=== PATIENT | male | born 1965 | race Caucasian/White ===

== ENCOUNTER 2017-08-08 10:01 | Emergency (ER) | payer MEDICAID ==
[2017-08-08 10:06] VITALS: BP 137/94
[2017-08-08] MEDS ORDERED: LIDOCAINE TOPICAL 4% 50 ML BOTTLE MM STA (10:51)
--- NOTE | 2017-08-08 10:55 | ED Physician Documentation ---
History of Present Illness - Stated complaint Stated Complaint: R EAR PX - Chief complaint Chief Complaint: Heent - Additonal information Additional information: hx from pt 51 male recent cough cold body aches ear was stuffy, cleaned qith q tip and got blood and now severe r ea and red swollen external ear and adjacent head and neck Review of Systems Constitutional: reports: Chills, Fatigue, Sweats. denies: Fever Ears: reports: Ear pain Nose: reports: Congestion Respiratory: reports: Cough Immunocompromised: denies: Immunocompromised PD PAST MEDICAL HISTORY - Past Medical History Past Medical History: Yes Cardiovascular: None Respiratory: None Neuro: Head injury Endocrine/Autoimmune: None GI: GERD, Ulcers : None HEENT: None Psych: Depression Musculoskeletal: Rheumatoid arthritis, Chronic back pain Derm: Other - Past Surgical History Past Surgical History: Yes Ortho: Spine surgery, Other - Present Medications Home Medications: Ambulatory Orders Medication Instructions Recorded Confirmed Albuterol Sulfate [Proair Hfa 2 puffs INH Q4H PRN #1 inhaler 08/08/17 Inhaler] Amox/Clav 875/125 [Augmentin] 1 each PO Q12H #20 tablet 08/08/17 Benzonatate [Tessalon] 100 mg PO TID PRN #20 capsule 08/08/17 Oxymetazoline HCl [Afrin] 2 spray NS BID PRN #1 bottle 08/08/17 - Allergies Allergies/Adverse Reactions: Allergies Allergy/AdvReac Type Severity Reaction Status Date / Time Sulfa (Sulfonamide Allergy Severe Rash Verified 08/08/17 10:05 Antibiotics) iodine Allergy "BLEEDING"-PER Verified 08/08/17 10:05 PATIENT - Social History Does the pt smoke?: Yes Smoking Status: Current every day smoker Does the pt drink ETOH?: No Does the pt have substance abuse?: No - Immunizations Immunizations are current?: Yes - POLST Patient has POLST: No PD ED PE NORMAL - Vitals Vital signs reviewed: Yes - HEENT HEENT: PERRL. No: Ears normal (R TM bulging with gree pus, partially obscured by swollen canal but no per or active bleeding seen, some old dried blood in canal, canal amd pinna and tragus and lobe or ear all red and swollen and tender , some TTP to mastoid as well but no erythema or boggy swelling there, and some mild edema and erythema to anterior right neck) - Neck Neck: Supple, no meningeal sign - Cardiac Cardiac: RRR - Respiratory Respiratory: Other (coarse kristy, exp wheezing) Results - Vitals Vitals: Vital Signs - 24 hr 08/08/17 10:03 Temperature 35.7 C L Heart Rate 66 Respiratory 16 Rate Blood Pressure 137/94 H O2 Saturation 100 Oxygen O2 Source Room air PD MEDICAL DECISION MAKING - ED course ED course: severe AOM with cellulitis of ear and even some TTP to mastoid region not diabetic will rx augmentin as well as symptomatic meds no local PMD advised pt he need to come back to ED for a 48 hr recheck unless completely better - may need imaging and IV antibiotics if not improving Departure - Departure Clinical Impression: Otitis media Qualifiers: Otitis media type: suppurative Chronicity: acute Laterality: right Recurrence: not specified as recurrent Spontaneous tympanic membrane rupture: without spontaneous rupture Qualified Code(s): H66.001 - Acute suppurative otitis media without spontaneous rupture of ear drum, right ear Cellulitis of ear Qualifiers: Laterality: right Qualified Code(s): H60.11 - Cellulitis of right external ear Condition: Good Instructions: ED Infec Skin Cellulitis, ED Otitis Media Acute Adult Prescriptions: Albuterol Sulfate [Proair Hfa Inhaler] 2 puffs INH Q4H PRN #1 inhaler PRN Reason: Shortness Of Air/Wheezing Amox/Clav 875/125 [Augmentin] 1 each PO Q12H #20 tablet Benzonatate [Tessalon] 100 mg PO TID PRN #20 capsule PRN Reason: to ease cough Oxymetazoline HCl [Afrin] 2 spray NS BID PRN #1 bottle PRN Reason: nasal sinus ear congestion Comments: You have a very severe ear infection that has spread to the external ear and the skin on the right side of your neck and perhaps even in the bone behind your ear called the mastoid You may also have pneumonia - as we discussed, I am already prescribing antibiotics for your ear so we agreed to pass on a chest xray for today I have prescribed a strong antibiotic And also medication to help ease the symptoms You can also take motrin and tylenol for the pain It is very very important that you come back to the ER for a recheck in 48 hr unless completely better - if you are not improving we may need to do a CT scan of your head and neck and give you IV antibiotics. Return to the ER at any time if you are getting worse - we are always open Forms: Activity restrictions
[2017-08-08] MEDS ORDERED: AMOX/CLAV 875 MG/125 MG TABLET PO STA (10:59)
== END 2017-08-08 11:17 | disposition home or self-care (01) ==
LOC: ED 10:01
DX: H66.001 Acute suppurative otitis media without spontaneous rupture of ear drum, right ear (principal); H60.11 Cellulitis of right external ear; K21.9 Gastro-esophageal reflux disease without esophagitis; M06.9 Rheumatoid arthritis, unspecified; Z87.11 Personal history of peptic ulcer disease; F17.200 Nicotine dependence, unspecified, uncomplicated
CPT/HCPCS: 99283; A9270

== ENCOUNTER 2019-05-20 10:47 | Emergency (ER) | payer MEDICAID ==
[2019-05-20 11:03] VITALS: BP 128/99
[2019-05-20] MEDS ORDERED: DEXAMETHASONE 10 MG/ML VIAL PO STA (12:28)
[2019-05-20] MEDS ORDERED: CHERRY SYRUP 10 ML UDC PO ONE (12:28)
[2019-05-20] MEDS ORDERED: KETOROLAC 60 MG/2 ML VIAL IM STA (12:28)
--- NOTE | 2019-05-20 12:33 | ED Physician Documentation ---
PD HPI HEENT - Stated complaint Stated Complaint: BACK PX,DENTAL PX - Chief complaint Chief Complaint: Heent - History obtained from History obtained from: Patient - History of Present Illness Timing - onset: How many days ago (5) Timing - duration: Days (5) Timing - details: Gradual onset, Still present Location: Tooth Improves: Medication Worsens: Swalllowing Associated symptoms: Congestion, Facial swelling, Other (back pain) Similar symptoms before: Diagnosis (dental abscess) Recently seen: Clinic - Additional information Additional information: 53-year-old male complains of a weeklong history of pain in his upper and lower molars and he is gone into see his dentist and was placed on some amoxicillin. He has had some swelling to the left upper eyelid and he picked that this and did not get much in the way of drainage from it. He has a sore up there now and has more swelling to his eye today than he did yesterday. He has been on the antibiotic for 2 days. He has not had improvement in his pain and has had worsening of the swelling in his eye. In addition the patient reports having a fall over [place] when he had his tool box in his arms he fell backwards and he strained his back. He is complaining of pain radiating down his right leg. He is not having any any issue with his bowel or bladder it does not have numbness in the perineum. Review of Systems Constitutional: denies: Fever, Chills Eyes: reports: Other (swelling to the L upper lid). denies: Decreased vision, Photophobia Ears: denies: Ear pain Nose: denies: Rhinorrhea / runny nose, Congestion Throat: reports: Dental pain / toothache. denies: Sore throat Cardiac: denies: Chest pain / pressure Respiratory: denies: Dyspnea, Cough GI: denies: Abdominal Pain, Nausea, Vomiting : denies: Dysuria, Frequency Musculoskeletal: reports: Back pain. denies: Neck pain Neurologic: denies: Generalized weakness, Focal weakness, Numbness PD PAST MEDICAL HISTORY - Past Medical History Cardiovascular: None Respiratory: None Endocrine/Autoimmune: None GI: GERD, Ulcers : None HEENT: None Psych: Depression Musculoskeletal: Rheumatoid arthritis, Chronic back pain Derm: Other - Past Surgical History Past Surgical History: Yes Ortho: Spine surgery, Other - Present Medications Home Medications: Ambulatory Orders Medication Instructions Recorded Confirmed Albuterol Sulfate [Proair Hfa 2 puffs INH Q4H PRN #1 inhaler 08/08/17 Inhaler] Amox/Clav 875/125 [Augmentin] 1 each PO Q12H #20 tablet 08/08/17 Benzonatate [Tessalon] 100 mg PO TID PRN #20 capsule 08/08/17 Oxymetazoline HCl [Afrin] 2 spray NS BID PRN #1 bottle 08/08/17 Amox/Clav 875/125 [Augmentin] 1 each PO Q12H #20 tablet 05/20/19 Cyclobenzaprine [Flexeril] 10 mg PO TID PRN #20 tablet 05/20/19 Hydrocodone/Acetaminophen 1 - 2 each PO Q6H PRN #14 tablet 05/20/19 [Hydrocodon-Acetaminophen 5-325] - Allergies Allergies/Adverse Reactions: Allergies Allergy/AdvReac Type Severity Reaction Status Date / Time Sulfa (Sulfonamide Allergy Severe Rash Verified 05/20/19 11:02 Antibiotics) iodine Allergy "BLEEDING"-PER Verified 05/20/19 11:02 PATIENT - Social History Does the pt smoke?: Yes Smoking Status: Current every day smoker Does the pt drink ETOH?: No Does the pt have substance abuse?: No - Immunizations Immunizations are current?: Yes - POLST Patient has POLST: No PD ED PE NORMAL - Vitals Vital signs reviewed: Yes - General General: Alert and oriented X 3, No acute distress, Well developed/nourished - HEENT HEENT: Atraumatic, PERRL, EOMI, Other (There is swelling to the left upper lid with mild erythema and an area that looks like a rug burn over the lateral aspect of the upper eyelid. Examination of the oropharynx reveals multiple carious teeth there are sensitive teeth to the posterior molars on the left side both upper and lower there is no fluctuance to the buccal fold.) - Neck Neck: Supple, no meningeal sign, No bony TTP - Respiratory Respiratory: No respiratory distress - Back Back: No CVA TTP, No spinal TTP, Other (There is tenderness to the paraspinous muscles of the lumbar spine on the right side extending from the medial aspect of the ribs to the iliac crest and radiating into the sciatic notch.) - Derm Derm: Normal color, Warm and dry, No rash - Extremities Extremities: Normal ROM s pain, No edema - Neuro Neuro: Alert and oriented X 3, reception agent 2-12 intact, No motor deficit, No sensory deficit, Normal speech Eye Opening: Spontaneous Motor: Obeys Commands Verbal: Oriented GCS Score: 15 - Psych Psych: Normal mood, Normal affect Results - Vitals Vitals: Vital Signs - 24 hr 05/20/19 10:56 Temperature 36.8 C Heart Rate 74 Respiratory 18 Rate Blood Pressure 128/99 H O2 Saturation 96 Oxygen O2 Source Room air PD MEDICAL DECISION MAKING - ED course Complexity details: reviewed old records, considered differential, d/w patient ED course: 53 y/o male with pain and swelling to the left eyelid, the left upper and lower molars and pain to the right back consistent with sciatica. We will change his antibiotic to augmentin and provide pain medication and muscle relaxant for sciatica as well as treatment in the ED consisting of decadron and toradal. Departure - Departure Disposition: 01 Home, Self Care Clinical Impression: Pain, dental, Periorbital cellulitis of left eye Sciatica Qualifiers: Laterality: right Qualified Code(s): M54.31 - Sciatica, right side Condition: Stable Instructions: ED Sciatica, ED Tooth Pain, ED Cellulitis Vanesa Orbital Follow-Up: Your, doctor [Other] Prescriptions: Amox/Clav 875/125 [Augmentin] 1 each PO Q12H #20 tablet Cyclobenzaprine [Flexeril] 10 mg PO TID PRN #20 tablet PRN Reason: Spasms Hydrocodone/Acetaminophen [Hydrocodon-Acetaminophen 5-325] 1 - 2 each PO Q6H PRN #14 tablet PRN Reason: pain
== END 2019-05-20 12:53 | disposition home or self-care (01) ==
LOC: ED 10:47
DX: K08.89 Other specified disorders of teeth and supporting structures (principal); L03.213 Periorbital cellulitis; M54.31 Sciatica, right side
CPT/HCPCS: 96372; 99283; 99284; A9270

== ENCOUNTER 2020-03-18 12:26 | Emergency (ER) | payer MEDICAID ==
[2020-03-18] MEDS ORDERED: CHERRY SYRUP 10 ML UDC PO ONE (13:19)
[2020-03-18] MEDS ORDERED: DEXAMETHASONE 10 MG/ML VIAL PO STA (13:19)
--- NOTE | 2020-03-18 13:22 | ED Physician Documentation ---
PD HPI SKIN - Stated complaint Stated Complaint: SWELLING IN HANDS, NECK PAIN - Chief complaint Chief Complaint: Wound - History obtained from History obtained from: Patient - History of Present Illness Timing - onset: How many weeks ago (1) Timing - duration: Weeks (1) Timing - details: Gradual onset, Still present Location: RUE, LUE Quality / character: Painful, Swelling Improved by: Antibiotics Associated symptoms: No: Fever, Myalgias, Joint pain, Headache, Facial swelling Contributing factors: Other (homeless) Similar symptoms before: Diagnosis (cellulitis) Recently seen: Emergency Dept - Additional information Additional information: 54-year-old homeless male with a prior history of MRSA infection has developed swelling and tenderness to his hands he is developed some erythema associated with this and he has gone to the hospital in [place] and he has been prescribed some clindamycin about 4 days ago. He states hand seem to get better and then overnight have worsened. He states that he feels the swelling is worse. It is better than it was when it started but worse than it was last night. He continues to be homeless he is working outside and rarely wearing gloves. He feels that he needs to have his antibiotic changed. Review of Systems Constitutional: denies: Fever Eyes: denies: Decreased vision Ears: denies: Ear pain Nose: denies: Congestion Throat: denies: Sore throat Cardiac: denies: Chest pain / pressure Respiratory: denies: Dyspnea, Cough GI: denies: Abdominal Pain, Nausea, Vomiting : denies: Dysuria, Frequency Skin: reports: Lesions, Abrasion (s). denies: Rash Musculoskeletal: reports: Extremity pain, Extremity swelling. denies: Neck pain, Back pain Neurologic: denies: Generalized weakness, Focal weakness, Numbness PD PAST MEDICAL HISTORY - Past Medical History Cardiovascular: None Respiratory: None Endocrine/Autoimmune: None GI: GERD, Ulcers : None HEENT: None Psych: Depression Musculoskeletal: Rheumatoid arthritis, Chronic back pain Derm: Other - Past Surgical History Past Surgical History: Yes Ortho: Spine surgery, Other - Present Medications Home Medications: Ambulatory Orders Medication Instructions Recorded Confirmed Albuterol Sulfate [Proair Hfa 2 puffs INH Q4H PRN #1 inhaler 08/08/17 Inhaler] Amox/Clav 875/125 [Augmentin] 1 each PO Q12H #20 tablet 08/08/17 Benzonatate [Tessalon] 100 mg PO TID PRN #20 capsule 08/08/17 Oxymetazoline HCl [Afrin] 2 spray NS BID PRN #1 bottle 08/08/17 Amox/Clav 875/125 [Augmentin] 1 each PO Q12H #20 tablet 05/20/19 Cyclobenzaprine [Flexeril] 10 mg PO TID PRN #20 tablet 05/20/19 Hydrocodone/Acetaminophen 1 - 2 each PO Q6H PRN #14 tablet 05/20/19 [Hydrocodon-Acetaminophen 5-325] Doxycycline Hyclate 100 mg PO BID #20 capsule 03/18/20 - Allergies Allergies/Adverse Reactions: Allergies Allergy/AdvReac Type Severity Reaction Status Date / Time Sulfa (Sulfonamide Allergy Severe Rash Verified 03/18/20 12:37 Antibiotics) iodine Allergy "BLEEDING"-PER Verified 03/18/20 12:37 PATIENT - Social History Does the pt smoke?: Yes Smoking Status: Current every day smoker Does the pt drink ETOH?: No Does the pt have substance abuse?: No - Immunizations Immunizations are current?: Yes - POLST Patient has POLST: No PD ED PE NORMAL - Vitals Vital signs reviewed: Yes (normal ) - General General: Alert and oriented X 3, No acute distress, Well developed/nourished - HEENT HEENT: Atraumatic, PERRL, EOMI - Respiratory Respiratory: No respiratory distress - Derm Derm: Normal color, Warm and dry, No rash - Extremities Extremities: No deformity, Other (Both hands are swollen callused and have cracked skin to the fingertips. There is some erythema to the dorsum of the hands there are several abrasions with superficial infection. There is no area that looks like uncontrolled infection. No areas of fluctuance. The hands appear homeless, exposed.) - Neuro Neuro: Alert and oriented X 3, video intern 2-12 intact, No motor deficit, No sensory deficit, Normal speech Eye Opening: Spontaneous Motor: Obeys Commands Verbal: Oriented GCS Score: 15 - Psych Psych: Normal mood, Normal affect Results - Vitals Vitals: Vital Signs - 24 hr 03/18/20 12:34 Temperature 36.1 C L Heart Rate 77 Respiratory 20 Rate Blood Pressure 118/78 O2 Saturation 100 Oxygen O2 Source Room air PD MEDICAL DECISION MAKING - ED course Complexity details: reviewed old records, considered differential, d/w patient ED course: 54-year-old homeless male with superficial infection to the dorsum of both hands worse on the right than the left without lymphangitic streaking there is no palpable lymph nodes in the right axilla. The patient is afebrile. I have discussed with the patient ways to combat this including wearing gloves all the time and working and avoiding exposure to cold avoiding exposure of wet hands to the drying air and to use lotion to the hands as well. He will attempt to take several days off from his usual pursuit of life. Departure - Departure Disposition: 01 Home, Self Care Clinical Impression: Superficial skin infection Exposure to environmental cold Qualifiers: Encounter type: initial encounter Qualified Code(s): T69.9XXA - Effect of reduced temperature, unspecified, initial encounter Condition: Stable Instructions: ED Staph Infec Abx Tx Only, ED Hypothermia Prevention, ED [facility] Follow-Up: [facility] [Provider Group] Prescriptions: Doxycycline Hyclate 100 mg PO BID #20 capsule
[2020-03-18 13:52] VITALS: BP 135/91
== END 2020-03-18 13:53 | disposition home or self-care (01) ==
LOC: ED 12:26
DX: L08.9 Local infection of the skin and subcutaneous tissue, unspecified (principal); S60.512A Abrasion of left hand, initial encounter; S60.511A Abrasion of right hand, initial encounter; X58.XXXA Exposure to other specified factors, initial encounter; T69.8XXA Other specified effects of reduced temperature, initial encounter; X31.XXXA Exposure to excessive natural cold, initial encounter; Z59.0 Homelessness; L84 Corns and callosities; Z86.14 Personal history of Methicillin resistant Staphylococcus aureus infection; F17.200 Nicotine dependence, unspecified, uncomplicated
CPT/HCPCS: 99282; 99284; A9270

== ENCOUNTER 2021-01-12 10:06 | Emergency (ER) | payer MEDICAID ==
[2021-01-12 10:20] VITALS: BP 125/85
--- NOTE | 2021-01-12 10:51 | ED Physician Documentation ---
PD HPI SKIN - Stated complaint Stated Complaint: RT EYE SORE - Chief complaint Chief Complaint: General - History obtained from History obtained from: Patient - History of Present Illness Timing - onset: How many days ago (4) Timing - duration: Days (4) Timing - details: Gradual onset, Still present, Waxing and waning Location: Face, RUE, LUE Quality / character: Itchy, Swelling Associated symptoms: No: Fever, Myalgias, Joint pain, Headache, Facial swelling, Dyspnea, Abd pain, N/V/D, Urinary sx Contributing factors: Other (has known MRSA) Similar symptoms before: Diagnosis (MRSA) Recently seen: Emergency Dept (at [facility]) - Additional information Additional information: 55-year-old male who [place] his [place] has had a problem with MRSA previously and he has developed some sores again and went out to [facility] and was placed under course of Augmentin which she states promptly fixed his symptoms and as soon as he stopped the antibiotic he was having issues with sores again he has a sore across his forehead which he has now ruptured and is healing he has sores to the dorsum of both of his hands. He also is having some problem with his right shoulder where he has pulled his shoulder rating his boat and he is having some difficulty sleeping at night because of this. Review of Systems Constitutional: denies: Fever Eyes: denies: Decreased vision Ears: denies: Ear pain Nose: denies: Congestion Throat: denies: Sore throat Cardiac: denies: Chest pain / pressure Respiratory: denies: Dyspnea, Cough GI: denies: Vomiting Skin: reports: Lesions Musculoskeletal: denies: Neck pain, Back pain, Extremity pain PD PAST MEDICAL HISTORY - Past Medical History Past Medical History: Yes Cardiovascular: None Respiratory: None Neuro: None Endocrine/Autoimmune: None GI: GERD, Ulcers : None HEENT: None Psych: Depression Musculoskeletal: Rheumatoid arthritis, Chronic back pain Derm: Other - Past Surgical History Past Surgical History: Yes Ortho: Spine surgery, Other - Present Medications Home Medications: Ambulatory Orders Medication Instructions Recorded Confirmed Albuterol Sulfate [Proair Hfa 2 puffs INH Q4H PRN #1 inhaler 08/08/17 Inhaler] Amox/Clav 875/125 [Augmentin] 1 each PO Q12H #20 tablet 08/08/17 Benzonatate [Tessalon] 100 mg PO TID PRN #20 capsule 08/08/17 Oxymetazoline HCl [Afrin] 2 spray NS BID PRN #1 bottle 08/08/17 Amox/Clav 875/125 [Augmentin] 1 each PO Q12H #20 tablet 05/20/19 Cyclobenzaprine [Flexeril] 10 mg PO TID PRN #20 tablet 05/20/19 Hydrocodone/Acetaminophen 1 - 2 each PO Q6H PRN #14 tablet 05/20/19 [Hydrocodon-Acetaminophen 5-325] Doxycycline Hyclate 100 mg PO BID #20 capsule 03/18/20 Cyclobenzaprine [Flexeril] 10 mg PO TID PRN #20 tablet 01/12/21 Doxycycline Hyclate 100 mg PO BID #14 tab 01/12/21 Mupirocin 1 gm TP BID #22 gm 01/12/21 - Allergies Allergies/Adverse Reactions: Allergies Allergy/AdvReac Type Severity Reaction Status Date / Time Sulfa (Sulfonamide Allergy Severe Rash Verified 01/12/21 10:21 Antibiotics) iodine Allergy "BLEEDING"-PER Verified 01/12/21 10:21 PATIENT - Social History Does the pt smoke?: Yes Smoking Status: Current every day smoker Does the pt drink ETOH?: No Does the pt have substance abuse?: No - Immunizations Immunizations are current?: Yes - POLST Patient has POLST: No PD ED PE NORMAL - Vitals Vital signs reviewed: Yes (hypertensive ) - General General: Alert and oriented X 3, No acute distress, Well developed/nourished - HEENT HEENT: PERRL, EOMI, Other (There is an area of swelling and redness above the right eyebrow without mass or drainage. ) - Neck Neck: Supple, no meningeal sign - Respiratory Respiratory: No respiratory distress - Derm Derm: Normal color, Warm and dry, Other (There are a few areas to the dorsum of both hands with small red macules without mass or drainage. ) - Extremities Extremities: No deformity, No edema, Other (There is minimal restriction to ROM of the right shoulder and mild anterior deltoid pain. ) - Neuro Neuro: Alert and oriented X 3, signal supervisor 2-12 intact, No motor deficit, No sensory deficit, Normal speech Eye Opening: Spontaneous Motor: Obeys Commands Verbal: Oriented GCS Score: 15 - Psych Psych: Normal mood, Normal affect Results - Vitals Vitals: Vital Signs - 24 hr 01/12/21 10:18 Temperature 36.5 C Heart Rate 76 Respiratory 15 Rate Blood Pressure 125/85 H O2 Saturation 99 Oxygen O2 Source Room air PD MEDICAL DECISION MAKING - ED course Complexity details: considered differential, d/w patient ED course: 55-year-old male who was on [place] has a problem with MRSA and he has had recurrence of his sores. He recalls last year he was given a prescription for doxycycline and this seemed to clear his skin up quite well. He is requesting we repeat this. This seems quite reasonable. He does appear to have a issue with carriage and I have indicated to the patient that use of mupirocin is appropriate in the setting to the nose twice per day. In addition he has some overuse of his right shoulder and is giving some difficulty in sleeping and I rowell ve offered to provide a sling and some Flexeril. Departure - Departure Disposition: 01 Home, Self Care Clinical Impression: MRSA infection Shoulder sprain Qualifiers: Encounter type: initial encounter Shoulder sprain type: unspecified sprain Laterality: right Qualified Code(s): S43.401A - Unspecified sprain of right shoulder joint, initial encounter Condition: Stable Instructions: MRSA Infec, ED Sprain Shoulder Follow-Up: [facility] [Provider Group] Prescriptions: Doxycycline Hyclate 100 mg PO BID #14 tab Cyclobenzaprine [Flexeril] 10 mg PO TID PRN #20 tablet PRN Reason: Spasms Mupirocin 1 gm TP BID #22 gm Comments: Today it looks that you have MRSA back in your skin again. Take the antibiotic as prescribed, clean your skin frequently and use the mupirocin to your nose twice daily to prevent colonization. For your shoulder; take it out of the shoulder sling several times per day to run it and range of motion and use the Flexeril as needed for sleep at night. Expect your shoulder pain to improve over the next week and if you do not have improvement or worsening with your shoulder follow-up with the primary care doctor.
== END 2021-01-12 11:13 | disposition home or self-care (01) ==
LOC: ED 10:06
DX: L08.9 Local infection of the skin and subcutaneous tissue, unspecified (principal); B95.62 Methicillin resistant Staphylococcus aureus infection as the cause of diseases classified elsewhere; S43.401A Unspecified sprain of right shoulder joint, initial encounter; X50.3XXA Overexertion from repetitive movements, initial encounter; Y92.814 Boat as the place of occurrence of the external cause; M06.9 Rheumatoid arthritis, unspecified; Z79.899 Other long term (current) drug therapy; F17.200 Nicotine dependence, unspecified, uncomplicated
CPT/HCPCS: 99283; 99284

== ENCOUNTER 2021-10-02 15:54 | Emergency (ER) | payer MEDICAID ==
--- NOTE | 2021-10-02 16:15 | ED Physician Documentation ---
PD HPI HEENT - Stated complaint Stated Complaint: FACIAL SWELL/TOOTH PX - Chief complaint Chief Complaint: Heent - History obtained from History obtained from: Patient - History of Present Illness Timing - onset: How many days ago (He has had 2 days of developing facial ulcerations and swelling. Noted left upper gum swelling and pain initially. Has several superficial skin sores with swelling on forehead and eyebrows and cheek) Timing - duration: Days (2-3) Timing - details: Gradual onset, Still present Location: Mouth (left upper gingiva, but also several on forehead/eyebrows.) Similar symptoms before: Diagnosis (Similar skin infections in the past related to staph.) Recently seen: Not recently seen Review of Systems Constitutional: denies: Fever, Chills Nose: denies: Rhinorrhea / runny nose, Congestion Throat: denies: Sore throat Respiratory: denies: Cough Musculoskeletal: denies: Neck pain Neurologic: denies: Altered mental status, Headache PD PAST MEDICAL HISTORY - Past Medical History Cardiovascular: None Respiratory: None Neuro: None Endocrine/Autoimmune: None GI: GERD, Ulcers : None HEENT: None Psych: Depression Musculoskeletal: Rheumatoid arthritis, Chronic back pain Derm: Other - Past Surgical History Past Surgical History: Yes Ortho: Spine surgery, Other - Present Medications Home Medications: Ambulatory Orders Medication Instructions Recorded Confirmed Albuterol Sulfate [Proair Hfa 2 puffs INH Q4H PRN #1 inhaler 08/08/17 Inhaler] Amox/Clav 875/125 [Augmentin] 1 each PO Q12H #20 tablet 08/08/17 Benzonatate [Tessalon] 100 mg PO TID PRN #20 capsule 08/08/17 Oxymetazoline HCl [Afrin] 2 spray NS BID PRN #1 bottle 08/08/17 Amox/Clav 875/125 [Augmentin] 1 each PO Q12H #20 tablet 05/20/19 Cyclobenzaprine [Flexeril] 10 mg PO TID PRN #20 tablet 05/20/19 Hydrocodone/Acetaminophen 1 - 2 each PO Q6H PRN #14 tablet 05/20/19 [Hydrocodon-Acetaminophen 5-325] Doxycycline Hyclate 100 mg PO BID #20 capsule 03/18/20 Cyclobenzaprine [Flexeril] 10 mg PO TID PRN #20 tablet 01/12/21 Doxycycline Hyclate 100 mg PO BID #14 tab 01/12/21 Mupirocin 1 gm TP BID #22 gm 01/12/21 Chlorhexidine Gluconate [Hibiclens] 15 ml TP DAILY #236 ml 10/02/21 Doxycycline Hyclate 100 mg PO BID 7 Days #14 cap 10/02/21 HYDROcod/ACETAM 5/325 [[place] 5/325] 1 ea PO Q6H PRN #18 tablet 10/02/21 Mupirocin 2% Oint [Bactroban 2% 1 applic TOP TID #15 gm 10/02/21 Oint] - Allergies Allergies/Adverse Reactions: Allergies Allergy/AdvReac Type Severity Reaction Status Date / Time Sulfa (Sulfonamide Allergy Severe Rash Verified 10/02/21 16:05 Antibiotics) iodine Allergy "BLEEDING"-PER Verified 10/02/21 16:05 PATIENT - Social History Does the pt smoke?: Yes Smoking Status: Current every day smoker Does the pt drink ETOH?: No Does the pt have substance abuse?: No - Immunizations Immunizations are current?: Yes - POLST Patient has POLST: No PD ED PE NORMAL - Vitals Vital signs reviewed: Yes - General General: Alert and oriented X 3, Well developed/nourished - HEENT HEENT: Ears normal, Moist mucous membranes, Pharynx benign, Other (forehead and eyebrow area with several local areas of swelling, red, tender, with superficial ulcerations. No fluctuance noted. No current drainage. ). No: Dentition benign (caries noted. There is swelling left upper gingiva without fluctuance. ) - Neck Neck: Supple, no meningeal sign, No adenopathy - Cardiac Cardiac: RRR, No murmur - Respiratory Respiratory: Clear bilaterally Results - Vitals Vitals: Oxygen O2 Source Room air PD MEDICAL DECISION MAKING - ED course Complexity details: considered differential (It does appear to be likely superficial staph infections with satellite lesions on the face. No fluctuant areas or obvious drainable abscesses at this point.), d/w patient Departure - Departure Disposition: 01 Home, Self Care Clinical Impression: Infection, face, Dental infection Condition: Stable Record reviewed to determine appropriate education?: Yes Instructions: ED Staph Infec Abx Tx Only Prescriptions: Mupirocin 2% Oint [Bactroban 2% Oint] 1 applic TOP TID #15 gm Doxycycline Hyclate 100 mg PO BID 7 Days #14 cap Chlorhexidine Gluconate [Hibiclens] 15 ml TP DAILY #236 ml HYDROcod/ACETAM 5/325 [[place] 5/325] 1 ea PO Q6H PRN #18 tablet PRN Reason: Pain Comments: Regular cleansing with soap and water or showers. You can use the chlorhexidine topical wash with showering or facecloth washing and use it on your whole body but particularly the head and neck and chest area. Mupirocin antibiotic ointment to the main sore ulcerations 2-3 times daily lately. Doxycycline oral antibiotic twice daily for a week as directed. Tylenol or ibuprofen if needed for mild pains or medium pains. Add hydrocodone if needed for worse pains. This would be intended short-term as I would anticipate improvement in the wounds and infections over the next 2 to 3 days. Recheck if not improving well over the next several days and return if worsening. I transmitted your prescriptions to [facility] pharmacy in [place]. I am prescribing a short course of narcotic pain medication for you. These are potentially dangerous and addictive medications that should be used carefully. These medications may constipate you. Take an avjd-sxg-pcnapod stool softener such as docusate twice daily with plenty of water while taking these medications. If you go 24 hours without a bowel movement, take wrse-wqy-rnngedn MiraLAX, per package instructions. Do not drink or drive while taking these medications. If you received narcotic or sedating medications while in the emergency department do not drive for 24 hours. Store this medication in a safe, secure place and out of reach of children. It is a violation of federal law to give or sell this medication to another person or to use in a manner other than prescribed. The ED will not refill narcotic prescriptions, including prescriptions lost or stolen. You can dispose of unwanted medications at the [facility]'s office or at several pharmacies such as [facility]. Discharge Date/Time: 10/02/21 16:47
[2021-10-02] MEDS ORDERED: IBUPROFEN 600 MG TABLET PO STA (16:27)
[2021-10-02] MEDS ORDERED: ACETAMINOPHEN 325 MG TABLET PO STA (16:27)
[2021-10-02] MEDS ORDERED: DOXYCYCLINE 100 MG TABLET PO STA (16:27)
== END 2021-10-02 16:47 | disposition home or self-care (01) ==
LOC: ED 15:54
DX: K04.7 Periapical abscess without sinus (principal)
CPT/HCPCS: 99283

== ENCOUNTER 2022-09-08 14:49 | Emergency (ER) | payer MEDICAID ==
[2022-09-08 14:56] VITALS: BP 160/88
--- NOTE | 2022-09-08 15:42 | XRAY Report ---
PROCEDURE: Wrist 4 View RT INDICATIONS: Trauma TECHNIQUE: 4 views of the wrist were acquired. COMPARISON: None. FINDINGS: Bones: No fractures or dislocations. No suspicious bony lesions. Scaphoid view: Intact scaphoid Soft tissues: No suspicious soft tissue calcifications or masses. IMPRESSION: Intact right wrist. Reviewed by: Sofía Lazaro MD on 09/08/2022 3:41 PM PDT Approved by: Sofía Lazaro MD on 09/08/2022 3:41 PM PDT Station ID: [id number]
[2022-09-08] MEDS ORDERED: IBUPROFEN 800 MG TABLET PO STA (15:49)
--- NOTE | 2022-09-08 15:52 | ED Physician Documentation ---
PD HPI UPPER EXT INJURY - Stated complaint Stated Complaint: RT WRIST PX - Chief complaint Chief Complaint: Trauma Ext - History obtained from History obtained from: Patient - History of Present Illness Location: Right, Wrist Where injury occurred: Home Timing - onset: Yesterday Pain level max: 6 Pain level now: 5 Improved by: Rest Worsened by: Moving, Palpating Associated symptoms: Tingling, Swelling. No: Weakness, Numbness, Discolored Contributing factors: No: Anticoagulated - Additonal information Additional information: Patient is a 56-year-old male who presents to the emergency department the right wrist injury. He states that he was starting a chainsaw when he felt a pop in his right wrist. This occurred yesterday. He states the pain is continued today. He noted swelling today as well. He states occasionally there is tingling as well. No discoloration. No numbness not anticoagulated. Patient is right-handed. Has not taken anything for pain. No fevers. No chills. Review of Systems Constitutional: denies: Fever, Chills GI: denies: Vomiting Skin: denies: Rash Musculoskeletal: denies: Neck pain, Back pain Neurologic: denies: Headache PD PAST MEDICAL HISTORY - Past Medical History Past Medical History: Yes Cardiovascular: None Respiratory: None Neuro: None Endocrine/Autoimmune: None GI: GERD, Ulcers : None HEENT: None Psych: Depression Musculoskeletal: Rheumatoid arthritis, Chronic back pain Derm: Other - Past Surgical History Past Surgical History: Yes Ortho: Spine surgery, Other - Present Medications Home Medications: Ambulatory Orders Medication Instructions Recorded Confirmed Albuterol Sulfate [Proair Hfa 2 puffs INH Q4H PRN #1 inhaler 08/08/17 Inhaler] Amox/Clav 875/125 [Augmentin] 1 each PO Q12H #20 tablet 08/08/17 Benzonatate [Tessalon] 100 mg PO TID PRN #20 capsule 08/08/17 Oxymetazoline HCl [Afrin] 2 spray NS BID PRN #1 bottle 08/08/17 Amox/Clav 875/125 [Augmentin] 1 each PO Q12H #20 tablet 05/20/19 Cyclobenzaprine [Flexeril] 10 mg PO TID PRN #20 tablet 05/20/19 Hydrocodone/Acetaminophen 1 - 2 each PO Q6H PRN #14 tablet 05/20/19 [Hydrocodon-Acetaminophen 5-325] Doxycycline Hyclate 100 mg PO BID #20 capsule 03/18/20 Cyclobenzaprine [Flexeril] 10 mg PO TID PRN #20 tablet 01/12/21 Doxycycline Hyclate 100 mg PO BID #14 tab 01/12/21 Mupirocin 1 gm TP BID #22 gm 01/12/21 Chlorhexidine Gluconate [Hibiclens] 15 ml TP DAILY #236 ml 10/02/21 Doxycycline Hyclate 100 mg PO BID 7 Days #14 cap 10/02/21 HYDROcod/ACETAM 5/325 [[place] 5/325] 1 ea PO Q6H PRN #18 tablet 10/02/21 Mupirocin 2% Oint [Bactroban 2% 1 applic TOP TID #15 gm 10/02/21 Oint] HYDROcod/ACETAM 5/325 [[place] 5/325] 1 - 2 ea PO Q6H PRN #14 tablet 09/08/22 Ibuprofen [Motrin] 800 mg PO Q8H PRN #30 tablet 09/08/22 - Allergies Allergies/Adverse Reactions: Allergies Allergy/AdvReac Type Severity Reaction Status Date / Time Sulfa (Sulfonamide Allergy Severe Rash Verified 09/08/22 14:53 Antibiotics) iodine Allergy "BLEEDING"-PER Verified 09/08/22 14:53 PATIENT - Social History Does the pt smoke?: Yes Smoking Status: Current every day smoker Does the pt drink ETOH?: No Does the pt have substance abuse?: No - Immunizations Immunizations are current?: Yes - POLST Patient has POLST: No PD ED PE NORMAL - Vitals Vital signs reviewed: Yes - General General: Alert and oriented X 3, No acute distress - HEENT HEENT: Moist mucous membranes - Derm Derm: Warm and dry - Extremities Extremities: Other (Right hand and wrist - Mild swelling and tenderness over the volar aspect of the right forearm. No bony tenderness over the wrist, anatomical snuffbox, hand or remainder of forearm. Neurovascular intact. He is able to range all fingers, there is pain with this however.) - Neuro Neuro: Alert and oriented X 3 Results - Vitals Vitals: Vital Signs - 24 hr 09/08/22 14:53 Temperature 36.5 C Heart Rate 90 Respiratory 18 Rate Blood Pressure 160/88 H O2 Saturation 98 Oxygen O2 Source Room air - Rads (name of study) R wrist xray Relevant Findings:: Final report received, See rad report (Intact right wrist. ) PD Medical Decision Making - ED course Complexity details: reviewed results, considered differential, d/w patient ED course: 56-year-old male with a right wrist strain/sprain. No acute findings on x-ray. Placed in a Velcro splint for comfort. Neurovascular intact. Will prescribe pain medication for home. Often follow-up with his doctor and orthopedics for further care. Patient will need to be more detailed examination of his wrist, forearm and tendons once the swelling and pain have decreased. Patient counseled regarding signs and symptoms for which I believe and urgent re- evaluation would be necessary. Patient with good understanding of and agreement to plan and is comfortable going home at this time This document was made in part using voice recognition software. While efforts are made to proofread this document, sound alike and grammatical errors may occur. Departure - Departure Disposition: 01 Home, Self Care Clinical Impression: Right wrist sprain Qualifiers: Encounter type: initial encounter Qualified Code(s): S63.501A - Unspecified sprain of right wrist, initial encounter Condition: Good Instructions: ED Splint Care Velcro, ED Sprain Wrist Follow-Up: [facility]opedic [facility] [Provider Group] - Within 1 week Prescriptions: Ibuprofen [Motrin] 800 mg PO Q8H PRN #30 tablet PRN Reason: PAIN &/OR FEVER HYDROcod/ACETAM 5/325 [[place] 5/325] 1 - 2 ea PO Q6H PRN #14 tablet PRN Reason: Pain Comments: Your xray does not show any acute abnormality. Wear the splint at all times. Please follow up with orthopedics for re-evaluation of your tendons and wrist when the swelling has decreased. Your prescriptions were sent to [facility] in [place]. I am prescribing a short course of narcotic pain medication for you. These are potentially dangerous and addictive medications that should be used carefully. These medications may constipate you. Take an mqxs-enr-ncjynbh stool softener (docusate) twice daily with plenty of water while taking these medications. If you go 24 hours without a bowel movement, take shjm-fdp-spsedyq miralax, per package instructions. Do not drink or drive while taking these medications. If you received narcotic or sedating medications while in the emergency department, do not drive for 24 hours. Store this medication in a safe, secure place and out of reach of children. It is a violation of federal law to give or sell this medication to another person or to use in a manner other than prescribed. The ED will not refill narcotic prescriptions, including prescriptions lost or stolen. To dispose of unwanted medications: 1. [facility] at [address] in [place] has a medication drop box. They accept prescription medications (in pill form) Wednesday through Wednesday 9:00 a.m. to 5:00 p.m. 2. The [facility] [employer] accepts prescription medications (in pill form only) for disposal year round. Call for more information. 3. Contact the [facility] for the next [facility] sponsored prescription drug collection event. , [phone], or [phone]; Discharge Date/Time: 09/08/22 16:01
== END 2022-09-08 16:01 | disposition home or self-care (01) ==
LOC: ED 14:49
DX: S63.501A Unspecified sprain of right wrist, initial encounter (principal); X58.XXXA Exposure to other specified factors, initial encounter; Y93.89 Activity, other specified; Z79.899 Other long term (current) drug therapy; F17.200 Nicotine dependence, unspecified, uncomplicated
CPT/HCPCS: 73110; 99283; A9270

== ENCOUNTER 2023-05-25 19:23 | Emergency (ER) | payer MEDICAID ==
[2023-05-25 19:35] VITALS: BP 140/108; O2SAT 98
[2023-05-25] MEDS ORDERED: HYDROcod/ACET 5/325 Prepack 4 PO STA (19:46)
--- NOTE | 2023-05-25 19:51 | ED Physician Documentation ---
PD HPI HEENT - Stated complaint Stated Complaint: TOOTH PX - Chief complaint Chief Complaint: Heent - History obtained from History obtained from: Patient - Additional information Additional information: 57-year-old male presents with Left upper molar pain. Has had dental decay in this area for many years and has been referred to a specialist in the [place] area but unfortunately has never been able to travel there due to issues with transportation and finances. HeAnd has been worse, rating up into his eye and causing his eye to twitch. This has happened before and he was told it may be related to his optic nerve given the proximity of the dental decay. He has not had any eye swelling, no eye redness or drainage. He has not had any facial swelling or erythema no fever or chills. He states he did recently get a vehicle and does plan to try to see a dentist now but is requesting pain control and possibly antibiotics until then. He has tried Tylenol and ibuprofen without relief.He also smokes marijuana for pain occasionally Review of Systems Constitutional: reports: Reviewed and negative Eyes: reports: Reviewed and negative, Other (Left eye twitching) Nose: reports: Reviewed and negative Throat: reports: Dental pain / toothache. denies: Oral lesions / sores, Sore throat, Swollen tonsils, Swallowed foreign body PD PAST MEDICAL HISTORY - Past Medical History Past Medical History: Yes Cardiovascular: None Respiratory: None Neuro: CVA Endocrine/Autoimmune: None GI: GERD, Ulcers : None HEENT: None Psych: Depression Musculoskeletal: Rheumatoid arthritis, Chronic back pain Derm: Other - Past Surgical History Past Surgical History: Yes Ortho: Spine surgery, Other - Present Medications Home Medications: Ambulatory Orders Medication Instructions Recorded Confirmed Amoxicillin 500 mg PO TID #21 cap 05/25/23 HYDROcod/ACETAM 5/325 [[place] 5/325] 1 - 2 tablet PO Q6H PRN #14 tablet 05/25/23 - Allergies Allergies/Adverse Reactions: Allergies Allergy/AdvReac Type Severity Reaction Status Date / Time Sulfa (Sulfonamide Allergy Severe Rash Verified 05/25/23 19:42 Antibiotics) iodine Allergy "BLEEDING"-PER Verified 05/25/23 19:42 PATIENT - Social History Does the pt smoke?: Yes Smoking Status: Current every day smoker Does the pt drink ETOH?: No Does the pt have substance abuse?: No - Immunizations Immunizations are current?: Yes - POLST Patient has POLST: No PD ED PE NORMAL - Vitals Vital signs reviewed: Yes - General General: Alert and oriented X 3, No acute distress, Well developed/nourished - HEENT HEENT: Atraumatic, PERRL, EOMI (Occasional left eye twitch), Moist mucous membranes, Other (Dental decay with eroding left upper molars and visible caries. There is no abscess along the gumline or no facial swelling or erythema.) - Cardiac Cardiac: RRR, No murmur, No gallop, No rub - Respiratory Respiratory: No respiratory distress, Clear bilaterally Results - Vitals Vitals: Vital Signs - 24 hr 05/25/23 19:27 Temperature 36 C L Heart Rate 97 Respiratory 16 Rate Blood Pressure 140/108 H O2 Saturation 98 Oxygen O2 Source Room air PD Medical Decision Making - ED course Complexity details: d/w patient ED course: 57-year-old male presented with left upper molar dental pain. He has had issues in this area for quite some time as he has in a broken eroding tooth decay and he has visible caries and decay on exam today, there is no abscess per se along the gumline or no drainable abscess but certainly he likely has some deep DKA in this area causing his symptoms. No evidence of facial cellulitis or erythema. I advised the patient that we can give a short-term prescription for pain control and antibiotics but this is a temporary measure and he absolutely needs to see a dentist for definitive treatment. The patient states understanding, states he now has a vehicle and is able to transport himself to the dentist thus plans to make an appointment as soon as he can. I prescribed the patient short- term [place], recommend take ibuprofen and will prescribe amoxicillin. Return precautions reviewed. Departure - Departure Disposition: 01 Home, Self Care Clinical Impression: Pain due to dental caries Condition: Good Instructions: ED Tooth Pain Prescriptions: Amoxicillin 500 mg PO TID #21 cap HYDROcod/ACETAM 5/325 [[place] 5/325] 1 - 2 tablet PO Q6H PRN #14 tablet PRN Reason: Pain Comments: You have severe dental decay causing your pain. It is extremely important that you see a dentist as soon as possible to definitively address this. We will give you antibiotics and pain medicine at this time but this is just a temporary measure until you can see the dentist. I am prescribing a short course of narcotic pain medication for you. These are potentially dangerous and addictive medications that should be used carefully. These medications may constipate you. Take an yvxd-oft-kswsxqn stool softener (docusate) twice daily with plenty of water while taking these medications. If you go 24 hours without a bowel movement, take uihi-bsm-utcnzki miralax, per package instructions. Do not drink or drive while taking these medications. If you received narcotic or sedating medications while in the emergency department, do not drive for 24 hours. Store this medication in a safe, secure place and out of reach of children. It is a violation of federal law to give or sell this medication to another person or to use in a manner other than prescribed. The ED will not refill narcotic prescriptions, including prescriptions lost or stolen. To dispose of unwanted medications: 1. [facility] provides a drop box for medication in pill form only (no liquids) 8:00 am to 4:30 p.m. Wednesday-Wednesday in the lobby of the [facility], [address] [place] [address]. Empty pills into ziplock bag before disposal. Call [phone] for information. 2.[employer] is a free service available to all [facility] residents. Go to [email or web address] Note that many narcotic pain relievers also contain Tylenol/acetaminophen. Please ensure that your total dose of acetaminophen from all sources does not exceed 3 g (3000 mg) per day. Forms: PCP List
== END 2023-05-25 19:59 | disposition home or self-care (01) ==
LOC: ED 19:23
DX: K02.9 Dental caries, unspecified (principal); F17.200 Nicotine dependence, unspecified, uncomplicated
CPT/HCPCS: 99282; 99283

== ENCOUNTER 2023-06-29 10:21 | Emergency (ER) | payer MEDICAID ==
[2023-06-29 10:42] VITALS: BP 146/92; O2SAT 98
--- NOTE | 2023-06-29 11:24 | XRAY Report ---
PROCEDURE: Chest 2V INDICATIONS: Productive cough with SOA TECHNIQUE: 2 views of the chest were acquired. COMPARISON: None. FINDINGS: Surgical changes and devices: None. Lungs and pleura: No dense consolidation or pleural effusion. Mediastinum: Normal heart size Bones and chest wall: Mild degenerative changes. IMPRESSION: No acute radiographic abnormality. Reviewed by: Damián Rivera MD on 06/29/2023 11:23 AM [facility] Approved by: Damián Rivera MD on 06/29/2023 11:23 AM [facility] Station ID: [id number]
[2023-06-29 11:41] LABS: CORONAVIRUS 229E-RESP PCR NOT DETECTED; CORONAVIRUS HKU1-RESP PCR NOT DETECTED; CORONAVIRUS NL63-RESP PCR NOT DETECTED; CORONAVIRUS OC43-RESP PCR NOT DETECTED; HUMAN METAPNEUMOVIRUS NOT DETECTED; RHINOVIRUS/ENTEROVIRUS DETECTED; SARS-CoV-2 -RESP PCR PANEL NOT DETECTED
[2023-06-29 11:42] LABS: B. PARAPERTUSSIS- RESP PCR PAN NOT DETECTED; B. PERTUSSIS- RESP PCR PANEL NOT DETECTED; C. PNEUMONIAE- RESP PCR PANEL NOT DETECTED; INFLUENZA A- RESP PCR PANEL NOT DETECTED; INFLUENZA B - RESP PCR PANEL NOT DETECTED; M. PNEUMONIAE- RESP PCR PANEL NOT DETECTED; PARAINFLUENZA VIRUS 1 NOT DETECTED; PARAINFLUENZA VIRUS 2 NOT DETECTED; PARAINFLUENZA VIRUS 3 NOT DETECTED; PARAINFLUENZA VIRUS 4 NOT DETECTED; RSV- RESP PCR PANEL NOT DETECTED
--- NOTE | 2023-06-29 11:48 | ED Physician Documentation ---
History of Present Illness - Stated complaint Stated Complaint: NECK PX,SOA,UNWELL - Chief complaint Chief Complaint: Resp - History obtained from History obtained from: Patient - History of Present Illness Timing: How many weeks ago (1) Pain level max: 5 Pain level now: 5 - Additonal information Additional information: 57 year old male states that he has had a cough for the past 1 week. He complains of bodyaches, cough and congestion. States he feels like he is having difficulty breathing. Denies any history of lung diagnoses. He does smoke. Complains of generalized body ache. No nausea, vomiting or diarrhea currently. No abdominal pain. No chest pain. No fevers but has felt chilled. Review of Systems Constitutional: reports: Chills. denies: Fever Nose: reports: Rhinorrhea / runny nose, Congestion, Sinus pressure / pain Throat: denies: Sore throat Cardiac: denies: Chest pain / pressure, Palpitations Respiratory: reports: Cough, Wheezing GI: denies: Abdominal Pain, Nausea, Vomiting, Diarrhea Skin: denies: Rash Musculoskeletal: denies: Neck pain, Back pain Neurologic: denies: Headache PD PAST MEDICAL HISTORY - Past Medical History Past Medical History: Yes Cardiovascular: None Respiratory: None Neuro: CVA Endocrine/Autoimmune: None GI: GERD, Ulcers : None HEENT: None Psych: Depression Musculoskeletal: Rheumatoid arthritis, Chronic back pain Derm: Other - Past Surgical History Past Surgical History: Yes Ortho: Spine surgery, Other - Present Medications Home Medications: Ambulatory Orders Medication Instructions Recorded Confirmed clindamycin HCL [Cleocin HCl] 300 mg PO Q6H #40 cap 06/29/23 - Allergies Allergies/Adverse Reactions: Allergies Allergy/AdvReac Type Severity Reaction Status Date / Time Sulfa (Sulfonamide Allergy Severe Rash Verified 06/29/23 10:34 Antibiotics) iodine Allergy "BLEEDING"-PER Verified 06/29/23 10:34 PATIENT - Social History Does the pt smoke?: Yes Smoking Status: Current every day smoker Does the pt drink ETOH?: No Does the pt have substance abuse?: Yes Substance Use and Type: Marijuana - Immunizations Immunizations are current?: Yes - POLST Patient has POLST: No PD ED PE NORMAL - Vitals Vital signs reviewed: Yes - General General: Alert and oriented X 3, No acute distress - HEENT HEENT: Atraumatic, PERRL, EOMI, Ears normal, Moist mucous membranes - Neck Neck: Supple, no meningeal sign - Cardiac Cardiac: RRR, Strong equal pulses - Respiratory Respiratory: No respiratory distress, Other (Diffuse wheezing bilaterally) - Abdomen Abdomen: Soft, Non tender, Non distended - Derm Derm: Warm and dry - Extremities Extremities: No edema, Other (Several scattered areas of excoriation and erythema to the back of the bilateral hands. No drainable abscesses.) - Neuro Neuro: Alert and oriented X 3 - Psych Psych: Normal mood, Normal affect Results - Vitals Vitals: Vital Signs - 24 hr 06/29/23 06/29/23 06/29/23 10:29 10:34 12:42 Temperature 37.1 C Heart Rate 78 Respiratory 18 18 20 Rate Blood Pressure 146/92 H O2 Saturation 98 Oxygen O2 Source Room air - Labs Labs: Laboratory Tests 06/29/23 10:36 Nasal Adenovirus (PCR) NOT DETECTED Nasal B. parapertussis DNA (PCR) NOT DETECTED Nasal Coronavir 229E PCR NOT DETECTED Nasal Coronavir HKU1 PCR NOT DETECTED Nasal Coronavir NL63 PCR NOT DETECTED Nasal Coronavir OC43 PCR NOT DETECTED Nasal Enterovir/Rhinovir PCR DETECTED A Nasal Influenza B PCR NOT DETECTED Nasal Influenza A PCR NOT DETECTED Nasal Parainfluen 1 PCR NOT DETECTED Nasal Parainfluen 2 PCR NOT DETECTED Nasal Parainfluen 3 PCR NOT DETECTED Nasal Parainfluen 4 PCR NOT DETECTED Nasal RSV (PCR) NOT DETECTED Nasal B.pertussis DNA PCR NOT DETECTED Nasal C.pneumoniae (PCR) NOT DETECTED Mazin Human Metapneumo PCR NOT DETECTED Nasal M.pneumoniae (PCR) NOT DETECTED Nasal SARS-CoV-2 (PCR) NOT DETECTED - Rads (name of study) cxr Relevant Findings:: Final report received, See rad report PD Medical Decision Making - ED course Complexity details: reviewed results, re-evaluated patient, considered differential, d/w patient ED course: Patient is well-appearing, nontoxic. Afebrile. He is positive for rhinovirus. No pneumonia on chest x-ray. He refuses a breathing treatment. States he does not want any steroids or inhalers for home. He states he just came here for antibiotics and pain medication. He does not want any nonnarcotic pain medications. Informed him that I am not comfortable prescribing narcotics for his current condition. Patient became belligerent, yelling at the nursing staff, the respiratory therapist and throwing things around the room. I stated I would place him on antibiotics for his mild cellulitis of the hands. He again refuses all other care and all other treatment. The patient did calm down, still refuses any further care. Will place him on clindamycin as this has worked for him in the past for his cellulitis and have him follow-up with his doctor. No hypoxia. No respiratory distress. Alert and oriented x 3, no indication for involuntary hold. He appears to be decisional at this time. Not intoxicated. Patient informed that he can return at any time if he would like more treatment for his viral upper respiratory infection and wheezing. This document was made in part using voice recognition software. While efforts are made to proofread this document, sound alike and grammatical errors may occur. Departure - Departure Disposition: 01 Home, Self Care Clinical Impression: Rhinovirus Cellulitis Qualifiers: Site of cellulitis: unspecified site Qualified Code(s): L03.90 - Cellulitis, unspecified Condition: Good Instructions: ED Infec Skin Cellulitis, ED Viral Syndrome Follow-Up: your,doctor in 1 week [Other] Prescriptions: clindamycin HCL [Cleocin HCl] 300 mg PO Q6H #40 cap Comments: Your prescription was sent to the [facility] pharmacy. Take all antibiotics until gone. You can follow-up with one of the walk-in clinics if you are unable to see your normal primary care provider. You have refused to any breathing treatments or steroids for your respiratory virus. There is no pneumonia on your chest x-ray. Forms: PCP List Discharge Date/Time: 06/29/23 12:25
[2023-06-29] MEDS: predniSONE 20 MG TABLET PO STA (11:57)
[2023-06-29] MEDS: PSEUDOEPHEDRINE 30 MG TABLET PO STA (11:58)
[2023-06-29] MEDS: MELOXICAM 7.5 MG TABLET PO STA (11:58)
[2023-06-29] MEDS: IPRATROPIUM/ALBUTEROL 3 ML NEB INH STA (12:09)
== END 2023-06-29 12:25 | disposition home or self-care (01) ==
LOC: ED 10:21
DX: B34.8 Other viral infections of unspecified site (principal); L03.114 Cellulitis of left upper limb; L03.113 Cellulitis of right upper limb; F17.200 Nicotine dependence, unspecified, uncomplicated; R45.6 Violent behavior
CPT/HCPCS: 71046; 87633; 99283; 99284; A9270; J7512